=== PATIENT | female | born 1955 | race Caucasian/White ===

== ENCOUNTER 2016-12-03 17:42 | Emergency (ER) | payer BC, OTHER ==
[~2016-12-03] VITALS: Ht 175.3 cm; Wt 110.2 kg
--- NOTE | 2016-12-03 19:41 | PHYS DOC ---
Past Medical History Past Medical History: A-Fib, Depression, High Cholesterol, Hypertension, [place] Past Surgical History: Other Additional Past Surgical Histo: cardiac stent placed Alcohol Use: None Drug Use: None Adult General Chief Complaint Chief Complaint: CHEST WALL PAIN HPI HPI Patient is a 61 year old female who complains of right sided chest pain under and lateral to her right breast for several days, getting worse. It hurts worse when she breathes. She's had a productive cough for one or 2 months, at first thought it was just a chest cold. She saw her doctor a few days ago who listened to her lungs and seemed to think they did okay. She is not particularly short of breath but it hurts when she breathes. She denies COPD. She does smoke about 5 or 6 cigarettes a day. I encouraged her to quit. Patient states she does have A. fib. Her heating engineer recently increased her metoprolol dosage and plans on December 10 to do cardioversion, she is on Eliquis and aspirin. Review of Systems Review of Systems Constitutional: Denies fever or chills [] Eyes: Denies change in visual acuity, redness, or eye pain [] HENT: Denies nasal congestion or sore throat [] Respiratory: As in history of present illness Cardiovascular: Patient's chest pain does not sound cardiac, as described in history of present illness GI: Denies abdominal pain, nausea, vomiting, bloody stools or diarrhea [] : Denies dysuria or hematuria [] Musculoskeletal: Denies back pain or joint pain [] Integument: Denies rash or skin lesions [] Neurologic: Denies headache, focal weakness or sensory changes [] Allergies Allergies Allergies Coded Allergies Type Severity Reaction Last Updated Verified No Known Drug Allergies 12/03/16 No Physical Exam Physical Exam Constitutional: Well developed, well nourished, no acute distress, non-toxic appearance. Pulse ox on room air 97%. HENT: Normocephalic, atraumatic, bilateral external ears normal, nose normal. [ ] Eyes: conjunctiva normal, no discharge. [] Neck: Normal range of motion, no stridor. [] Cardiovascular:Heart irregularly irregular, no murmur Lungs & Thorax: Good air movement in all webster, expiratory wheezes present throughout, no rhonchi, no consolidative changes Skin: Warm, dry, no erythema, no rash. [] Extremities: No tenderness, no cyanosis, no clubbing, ROM intact, no edema. [] Neurologic: Alert and oriented X 3, normal motor function, normal sensory function, no focal deficits noted. [] Current Patient Data Vital Signs Vital Signs Date Time Temp Pulse Resp B/P Pulse Ox O2 Delivery O2 Flow Rate FiO2 12/03/16 17:57 97.7 72 24 114/75 98 Room Air 97.7 EKG EKG 12-lead EKG read by me. Atrial fibrillation. Heart rate 79. There are no acute ST or T wave changes indicative of ischemia or infarction. No STEMI. 1836 [] Radiology/Procedures Radiology/Procedures Two-view chest x-ray read by me. Heart size is normal. Lung webster are clear. Chest x-ray is normal. [] Course & Med Decision Making Course & Med Decision Making Pertinent Labs and Imaging studies reviewed. (See chart for details) 61-year-old female who has had a cough for over a month which has become worse and productive, now complaining of right-sided pleuritic chest pain. Even though her chest x-ray is clear, she is scheduled next week for a cardioversion and I elected to prescribe a Z-Victorino for her to cover her. Also a few [place] since she is on Eliquis for her pain and cough. [] Dragon Disclaimer Dragon Disclaimer This electronic medical record was generated, in whole or in part, using a voice recognition dictation system. Departure Departure Impression: Primary Impression: Pleuritic chest pain Additional Impression: Bronchitis Disposition: 01 HOME, SELF-CARE Condition: STABLE Referrals: LILLIAM BOWSER MD (PCP) Patient Instructions: Acute Bronchitis, [id number] Additional Instructions: As we discussed, I strongly urge you to quit smoking. Your lungs are wheezy and you are probably getting COPD. We will treat for bronchitis or possible pneumonia with a Z-Victorino, antibiotics. For pain and cough, hydrocodone as prescribed, not while driving, it will cause sedation and constipation. It is an opiate, use sparingly for a short time. Scripts Hydrocodone/Apap 5-325 ([place] 5-325 Tablet)1 Each Tablet1-2 Tab PO Q4-6HRS #20 TAB For pain and cough Not while driving Prov:JACLYN BLANDON MD 12/03/16 Azithromycin (Azithromycin Tablet)250 Mg Tablet1 Pkg PO UD #6 TAB As instructed for bronchitis/pneumonia Prov:JACLYN BLANDON MD 12/03/16 Problem Qualifiers JACLYN BLANDON MD Dec 03, 2016 19:41
[2016-12-03 19:52] VITALS: BP 111/61
[2016-12-03] MEDS ORDERED: AZIT250T6 PO (20:01)
[2016-12-03] MEDS ORDERED: HYDR-971 PO (20:01)
--- NOTE | 2016-12-04 06:17 | EKG ---
[facility] [address] [place] [address] Test Date: 2016-12-03 Test Time: 18:33:42 Pat Name: CLINTON SHIRLEY Department: Room: Gender: F [employer] Ground Worker: : 1955 Requested By: JACLYN BLANDON Order Number: [id number] Reading MD: Measurements Intervals [place] Rate: 79 P: MS: QRS: 40 QRSD: 110 T: -22 QT: 416 QTc: 484 Interpretive Statements IRREGULAR RHYTHM, NO P-WAVE FOUND INCOMPLETE RIGHT BUNDLE BRANCH BLOCK PROLONGED QT RI6.01 No previous ECG available for comparison
--- NOTE | 2016-12-04 08:54 | RAD ---
PA and lateral chest radiographs 12/03/2016 Clinical history: Right-sided chest pain. PA and lateral digital radiographs of the chest were obtained. Comparison study dated 08/12/2013. The cardiac silhouette is mildly enlarged. The thoracic aorta is tortuous. Atherosclerotic calcification of the thoracic aorta is seen. No acute pulmonary infiltrate is noted. No pneumothorax or pleural effusion is seen. Very mild S-shaped curvature of the thoracolumbar spine is noted. Degenerative changes are seen involving the thoracic spine Impression: No acute abnormality is seen.
== END 2016-12-03 20:25 | disposition home or self-care (01) ==
LOC: ER 17:42
DX: J40 Bronchitis, not specified as acute or chronic (principal); R07.81 Pleurodynia; I48.91 Unspecified atrial fibrillation; I10 Essential (primary) hypertension; F32.9 Major depressive disorder, single episode, unspecified; E78.00 Pure hypercholesterolemia, unspecified; F17.210 Nicotine dependence, cigarettes, uncomplicated; Z95.5 Presence of coronary angioplasty implant and graft
CPT/HCPCS: 71020; 93005; 99284

== ENCOUNTER 2018-04-23 12:31 | Emergency (ER) | payer BC ==
[~2018-04-23] VITALS: Ht 175.3 cm; Wt 101.2 kg
[~2018-04-23 12:31] MED LIST: AZIT250T6 PO; HYDR-971 PO
--- NOTE | 2018-04-23 13:04 | EKG ---
[facility] [address] [place] [address] Test Date: 2018-04-23 Test Time: 12:45:18 Pat Name: CLINTON SHIRLEY Department: Room: Gender: F Key Maker: JERROD : 1955 Requested By: JUAN TERRY Order Number: [id number] Reading MD: Wade Pereira MD Measurements Intervals [place] Rate: 93 P: 0 NV: 256 QRS: 38 QRSD: 110 T: -41 QT: 372 QTc: 465 Interpretive Statements ATRIAL FIBRILLATION WITH CONTROLLED VENTRICULAR RESPONSE NON-SPECIFIC ST/T CHANGES Electronically Signed On 04-27-2018 11:55:25 CDT by Wade Pereira MD
--- NOTE | 2018-04-23 13:11 | RAD ---
Portable chest, 04/23/2018: HISTORY: Chest pain Comparison is made to a study from 12/03/2016. The heart size and pulmonary vascularity are normal. There is mild bilateral apical scarring. No pulmonary infiltrate is seen. There is no evidence of pleural fluid. IMPRESSION: No acute cardiopulmonary abnormality is detected. Electronically signed by: Arnold Daly MD (04/23/2018 1:08 PM) [facility]
--- NOTE | 2018-04-23 13:25 | PHYS DOC ---
Past Medical History Past Medical History: A-Fib, Depression, High Cholesterol, Hypertension, [place] Past Surgical History: Other Additional Past Surgical Histo: cardiac stent placed Alcohol Use: None Drug Use: None Adult General Chief Complaint Chief Complaint: CHEST PAIN HPI HPI Patient is a 62 year old female was presenting with chest pain onset 2 days ago right side pleuritic and radiates to the right shoulder worse with deep breathing it is not exertional no left-sided pain no fever minimal cough sent in by primary doctor for CT scan PE protocol as well as probable admission due to ST depressions noted on EKG. Review of Systems Review of Systems Constitutional: Denies fever or chills [] Eyes: Denies change in visual acuity, redness, or eye pain [] HENT: Denies nasal congestion or sore throat [] GI: Denies abdominal pain, nausea, vomiting, bloody stools or diarrhea [] : Denies dysuria or hematuria [] Musculoskeletal: Denies back pain or joint pain [] Integument: Denies rash or skin lesions [] Neurologic: Denies headache, focal weakness or sensory changes [] All other systems were reviewed and found to be within normal limits, except as documented in this note. Current Medications Current Medications Current Medications Medications (Trade) Dose Ordered Sig/Amy Start Time Stop Time Status Last Admin Dose Admin Info (CONTRAST GIVEN -- Rx MONITORING) 1 each PRN DAILY PRN 04/23/18 14:45 04/25/18 14:44 Iohexol (Omnipaque 300 Mg/ml) 75 ml 1X ONCE 04/23/18 14:45 04/23/18 14:46 DC 04/23/18 14:46 75 ML Allergies Allergies Allergies Coded Allergies Type Severity Reaction Last Updated Verified No Known Drug Allergies 12/03/16 No Physical Exam Physical Exam Constitutional: Well developed, well nourished, no acute distress, non-toxic appearance. [] HENT: Normocephalic, atraumatic, bilateral external ears normal, oropharynx moist, no oral exudates, nose normal. [] Eyes: PERRLA, EOMI, conjunctiva normal, no discharge. [] Neck: Normal range of motion, no tenderness, supple, no stridor. [] Cardiovascular:Heart rate regular rhythm, no murmur [] Lungs & Thorax: Bilateral breath sounds clear to auscultation [] Abdomen: Bowel sounds normal, soft, no tenderness, no masses, no pulsatile masses. [] Skin: Warm, dry, no erythema, no rash. [] Back: No tenderness, no CVA tenderness. [] Extremities: No tenderness, no cyanosis, no clubbing, ROM intact, no edema. [] Neurologic: Alert and oriented X 3, normal motor function, normal sensory function, no focal deficits noted. [] Psychologic: Affect normal, judgement normal, mood normal. [] Current Patient Data Vital Signs Vital Signs Date Time Temp Pulse Resp B/P (MAP) Pulse Ox O2 Delivery O2 Flow Rate FiO2 04/23/18 13:36 98.0 90 18 146/88 (107) 98 Room Air 98.0 Lab Values Laboratory Tests Test 04/23/18 13:51 White Blood Count 10.3 x10^3/uL (4.0-11.0) Red Blood Count 4.47 x10^6/uL (3.50-5.40) Hemoglobin 14.7 g/dL (12.0-15.5) Hematocrit 41.3 % (36.0-47.0) Mean Corpuscular Volume 92 fL (79-100) Mean Corpuscular Hemoglobin 33 pg (25-35) Mean Corpuscular Hemoglobin Concent 36 g/dL (31-37) Red Cell Distribution Width 12.8 % (11.5-14.5) Platelet Count 184 x10^3/uL (140-400) Neutrophils (%) (Auto) 62 % (31-73) Lymphocytes (%) (Auto) 28 % (24-48) Monocytes (%) (Auto) 7 % (0-9) Eosinophils (%) (Auto) 2 % (0-3) Basophils (%) (Auto) 1 % (0-3) Neutrophils # (Auto) 6.4 x10^3uL (1.8-7.7) Lymphocytes # (Auto) 2.9 x10^3/uL (1.0-4.8) Monocytes # (Auto) 0.7 x10^3/uL (0.0-1.1) Eosinophils # (Auto) 0.2 x10^3/uL (0.0-0.7) Basophils # (Auto) 0.1 x10^3/uL (0.0-0.2) Prothrombin Time 16.2 SEC (11.7-14.0) H Prothrombin Time INR 1.4 (0.8-1.1) H Sodium Level 139 mmol/L (136-145) Potassium Level 3.7 mmol/L (3.5-5.1) Chloride Level 106 mmol/L (98-107) Carbon Dioxide Level 25 mmol/L (21-32) Anion Gap 8 (6-14) Blood Urea Nitrogen 15 mg/dL (7-20) Creatinine 0.8 mg/dL (0.6-1.0) Estimated GFR (Cockcroft-Gault) 72.4 BUN/Creatinine Ratio 19 (6-20) Glucose Level 115 mg/dL (70-99) H Calcium Level 8.5 mg/dL (8.5-10.1) Total Bilirubin 0.6 mg/dL (0.2-1.0) Aspartate Amino Transferase (AST) 13 U/L (15-37) L Alanine Aminotransferase (ALT) 16 U/L (14-59) Alkaline Phosphatase 136 U/L (46-116) H Troponin I Quantitative < 0.017 ng/mL (0.000-0.055) Total Protein 6.9 g/dL (6.4-8.2) Albumin 3.2 g/dL (3.4-5.0) L Albumin/Globulin Ratio 0.9 (1.0-1.7) L Laboratory Tests 04/23/18 13:51 Laboratory Tests 04/23/18 13:51 EKG EKG [] Interpretation Time: EKG shows a normal sinus rhythm with a rate of [address] depressions in the lateral leads that do look slightly different than the last EKG dated December 03, 2016 although there wer nonspecific changes then. No STEMI Radiology/Procedures Radiology/Procedures [] Impressions: Comparison is made to a study from 12/03/2016. The heart size and pulmonary vascularity are normal. There is mild bilateral apical scarring. No pulmonary infiltrate is seen. There is no evidence of pleural fluid. IMPRESSION: No acute cardiopulmonary abnormality is detected. Electronically signed by: Arnold Daly MD (04/23/2018 1:08 PM) [facility] DICTATED and SIGNED BY: ARNOLD DALY MD DATE: 04/23/18 7601 Course & Med Decision Making Course & Med Decision Making Pertinent Labs and Imaging studies reviewed. (See chart for details) []62-year-old female with known coronary artery disease status post stent placement is presenting with chest pain. Is very atypical however there are some subtle EKG changes. CT PE protocol per patient's primary doctor was done. CT scan was negative for PE. I recommended admission to the hospital for rule out acute coronary syndrome and/or risk stratification. Troponin is negative after 2 days of pain the pain is atypical. However she does have known stents. She does not want to stay she does not think is from her heart she is aware of risks and benefits of leaving including risk of missed coronary artery narrowing which could be leading to [place] or even . I did tell her father that this was a low risk but it was definitely not 0 and fact it was probably at least 10% if not higher. She still did not want to stay. I then did touch base with Dr. shahid patient's primary doctor who also thought the patient should be admitted and I did deliver that message to the patient as well nevertheless I still could not judgment patient to go she is of sound mind she is alert and understands what I'm talking about she can teach back to me. Dragon Disclaimer Dragon Disclaimer This electronic medical record was generated, in whole or in part, using a voice recognition dictation system. Departure Departure Impression: Primary Impression: Pleuritic chest pain Disposition: 07 AGAINST MEDICAL ADVICE Condition: STABLE Referrals: LILLIAM BOWSER MD (PCP) JUAN TERRY MD Apr 23, 2018 13:25
[2018-04-23 13:59] LABS: BASO # 0.1 x10^3/uL (0.0-0.2); BASO % 1 % (0-3); EOS # 0.2 x10^3/uL (0.0-0.7); EOS % 2 % (0-3); HEMATOCRIT 41.3 % (36.0-47.0); HEMOGLOBIN 14.7 g/dL (12.0-15.5); LYMPH # 2.9 x10^3/uL (1.0-4.8); LYMPH % 28 % (24-48); MEAN CORPUSCULAR HEMOGLOBIN 33 pg (25-35); MEAN CORPUSCULAR HGB CONC 36 g/dL (31-37); MEAN CORPUSCULAR VOLUME 92 fL (79-100); MONO # 0.7 x10^3/uL (0.0-1.1); MONO % 7 % (0-9); NEUT # 6.4 x10^3uL (1.8-7.7); NEUT % 62 % (31-73); PLATELET COUNT 184 x10^3/uL (140-400); RED BLOOD COUNT 4.47 x10^6/uL (3.50-5.40); RED CELL DISTRIBUTION WIDTH 12.8 % (11.5-14.5); WHITE BLOOD COUNT 10.3 x10^3/uL (4.0-11.0)
[2018-04-23 14:07] LABS: PROTHROMBIN TIME PATIENT 16.2 SEC (11.7-14.0)
[2018-04-23 14:08] LABS: CALCIUM 8.5 mg/dL (8.5-10.1); CREATININE 0.8 mg/dL (0.6-1.0); GFR 72.4; POTASSIUM 3.7 mmol/L (3.5-5.1)
[2018-04-23 14:13] LABS: ALBUMIN 3.2 g/dL (3.4-5.0); ALBUMIN/GLOBULIN RATIO 0.9 (1.0-1.7); TOTAL BILIRUBIN 0.6 mg/dL (0.2-1.0); TOTAL PROTEIN 6.9 g/dL (6.4-8.2)
[2018-04-23] MEDS ORDERED: IOHEXOL 300 MG/ML 100ML VIAL. IV ONE (14:45)
[2018-04-23] MEDS ORDERED: CONTRAST GIVEN. MC PRN (14:45)
--- NOTE | 2018-04-23 15:53 | RAD ---
Examination: CT angiography chest HISTORY: History of right-sided pleuritic chest pain COMPARISON: None available Exposure: One or more of the following individualized dose reduction techniques were utilized for this examination: 1. Automated exposure control 2. Adjustment of the mA and/or kV according to patient size 3. Use of iterative reconstruction technique TECHNIQUE: Axial CT angiographic images of chest were performed with IV contrast. Coronal and sagittal 3-D MIP reformats performed. FINDINGS: The visualized central airways are patent. The heart size demonstrates mild cardiomegaly. Coronary artery calcifications identified. Mild aortic atherosclerosis. There is no evidence of filling defect identified in the main pulmonary arterial trunk and right and left main pulmonary arteries and the visualized lobar, segmental branches of the pulmonary arteries. Emphysematous changes identified in the apical lungs. Mild apical lung scarring changes. Minimal right hilar prominence. No evidence of pleural effusion or pneumothorax. There is reflux of contrast into the IVC and hepatic veins. The caliber of the aorta grossly appears unremarkable. Mild degenerative changes thoracic spine. IMPRESSION: 1. No evidence of pulmonary embolism. 2. Coronary artery calcifications. 3. Emphysematous changes identified in the lungs. Minimal right hilar prominence probably hilar lymphadenopathy. Electronically signed by: Jd Pascal MD (04/23/2018 3:50 PM) [id number]
[2018-04-23 16:00] VITALS: BP 129/77
== END 2018-04-23 16:33 | disposition home or self-care (01) ==
LOC: ER 12:31
DX: R09.1 Pleurisy (principal); I48.91 Unspecified atrial fibrillation; E78.00 Pure hypercholesterolemia, unspecified; I10 Essential (primary) hypertension; I25.2 Old myocardial infarction
CPT/HCPCS: 36415; 71045; 71275; 80053; 84484; 85025; 85610; 93005; 99285; Q9967

== ENCOUNTER 2020-07-26 19:29 | Emergency (ER) | payer BC, OTHER ==
[~2020-07-26] VITALS: Ht 175.3 cm; Wt 90.0 kg
[~2020-07-26 19:29] MED LIST changes: +HYDR-3164 PO; -HYDR-971 PO
--- NOTE | 2020-07-26 19:42 | PHYS DOC ---
Past Medical History Past Medical History: A-Fib, Depression, High Cholesterol, Hypertension, [place], Other Additional Past Medical Histor: HEP C Past Surgical History: Angioplasty, Other Additional Past Surgical Histo: cardiac stent placed Smoking Status: Current Every Day Smoker Alcohol Use: None Drug Use: None General Adult EDM: Chief Complaint: SHOULDER INJURY HPI: HPI: Patient is a 65 year old female who presents with chief complaint of right shoulder pain. Patient had a mechanical fall yesterday and landed on her right hand and has severe in intensity right shoulder pain. Pain is worse with any range of motion or palpation of the right shoulder proximal humerus. Patient denies hitting her head or having loss of consciousness. Pain is nonradiating. Patient was seen by her doctor who had outpatient imaging. Pain is throbbing in nature. Review of Systems: Review of Systems: Constitutional: Denies fever or chills. [] Eyes: Denies change in visual acuity. [] HENT: Denies nasal congestion or sore throat. [] Respiratory: Denies cough or shortness of breath. [] Cardiovascular: Denies chest pain or edema. [] GI: Denies abdominal pain, nausea, vomiting, bloody stools or diarrhea. [] : Denies dysuria. [] Musculoskeletal: Denies back pain but has right shoulder pain Integument: Denies rash. [] Neurologic: Denies headache, focal weakness or sensory changes. [] Endocrine: Denies polyuria or polydipsia. [] Lymphatic: Denies swollen glands. [] Psychiatric: Denies depression or anxiety. [] Heart Score: Risk Factors: Risk Factors: DM, Current or recent (<one month) smoker, HTN, HLP, family history of CAD, obesity. Risk Scores: Score 0 - 3: 2.5% MACE over next 6 weeks - Discharge Home Score 4 - 6: 20.3% MACE over next 6 weeks - Admit for Clinical Observation Score 7 - 10: 72.7% MACE over next 6 weeks - Early Invasive Strategies Current Medications: Current Medications Morphine Sulfate (Morphine Sulfate) 4 mg 1X ONCE IV ; Start 07/26/20 at 20:00; Stop 07/26/20 at 19:58; Status DC Ondansetron HCl (Zofran) 4 mg 1X ONCE IVP ; Start 07/26/20 at 20:00; Stop 12/3/20 at 19:58; Status DC Morphine Sulfate (Morphine Sulfate) 5 mg 1X ONCE SQ Last administered on 07/26/20at 20:17; Start 07/26/20 at 20:00; Stop 07/26/20 at 20:02; Status DC Ondansetron HCl (Zofran Odt) 4 mg 1X ONCE PO Last administered on 07/26/20at 20:16; Start 07/26/20 at 20:00; Stop 07/26/20 at 20:02; Status DC Active Scripts Active [place] 5-325 Tablet (Acetaminophen/Hydrocodone Bitart) 1 Each Tablet 1-2 Tab PO Q4-6HRS For pain and cough Not while driving Azithromycin Tablet (Azithromycin) 250 Mg Tablet 1 Pkg PO UD As instructed for bronchitis/pneumonia Allergies: Allergies: Allergies Coded Allergies Type Severity Reaction Last Updated Verified No Known Drug Allergies 12/03/16 No Physical Exam: PE: Constitutional: Well developed, well nourished, no acute distress, non-toxic appearance. [] HENT: Normocephalic, atraumatic, bilateral external ears normal, no trismus nose normal. [] Eyes: PERRLA, EOMI, conjunctiva normal, no discharge. [] Neck: Normal range of motion, no tenderness, supple, no stridor. [] Cardiovascular: Irregular, peripheral pulses are intact Lungs & Thorax: Bilateral breath sounds clear, no respiratory distress Abdomen:, soft, no tenderness, no masses, no pulsatile masses. [] Skin: Warm, dry, no erythema, no rash. [] Scattered bruising on the right humerus Back: No tenderness, no CVA tenderness. [] Extremities: Tenderness and swelling to the right shoulder with significant limited range of motion. Neurovascular intact distally Neurologic: Alert and oriented X 3, normal motor function, normal sensory function, no focal deficits noted. [] No deltoid anesthesia Psychologic: Affect normal, judgement normal, mood normal. [] Current Patient Data: Vital Signs: Vital Signs Date Time Temp Pulse Resp B/P (MAP) Pulse Ox O2 Delivery O2 Flow Rate FiO2 07/26/20 19:30 98.2 99 18 102/60 (74) 96 Room Air 98.2 EKG: EKG: [] Radiology/Procedures: Radiology/Procedures: [][facility] [address] [place] [address] IMAGING REPORT Signed PATIENT: CLINTON SHIRLEY ACCOUNT: [id number] : 1955 LOCATION: ER AGE: 65 SEX: F EXAM STATUS: REG ER ORD. PHYSICIAN: KATHY MCKEON MD REASON: fall, shoulder pain PROCEDURE: SHOULDER 2+V RIGHT EXAM: Right shoulder, 3 views; right humerus, 2 views. HISTORY: Fall. Pain. COMPARISON: None. FINDINGS: 2 views of the right humerus and 3 views of the right shoulder obtained. There is a mildly displaced humeral head and neck fracture with fracture line extension to the greater tuberosity. There is acromioclavicular joint space narrowing with subchondral sclerosis and spurring. The distal humerus is excluded from the [id number]. IMPRESSION: 1. Mildly displaced proximal humeral fracture. 2. Mild acromioclavicular joint osteoarthritis. Electronically signed by: Jade Goss MD (07/26/2020 8:02 PM) [facility] DICTATED and SIGNED BY: JADE GOSS MD DATE: 07/26/[id number] 0 Course & Med Decision Making: Course & Med Decision Making Pertinent Labs and Imaging studies reviewed. (See chart for details) [] 65-year-old female with a mechanical fall yesterday and a right humeral head fracture. Shoulder immobilizer has been applied patient will need to follow-up with orthopedist in 2 to 3 days. Fracture care of the right proximal humerus shoulder was performed. Procedure note: Shoulder immobilizer application Clinical location right humeral neck fracture Shoulder immobilizer applied by metal room dental technician, examined by me after application, patient neurovascular intact with cap refill less than 2 seconds in the right upper extremity. Dragon Disclaimer: Dragon Disclaimer: This electronic medical record was generated, in whole or in part, using a voice recognition dictation system. Departure Departure Impression: Primary Impression: Fracture of humeral head, right, closed Disposition: 01 DC HOME SELF CARE/HOMELESS Condition: STABLE Referrals: LILLIAM BOWSER MD (PCP) HANY ETIENNE MD 2-3 DAYS Patient Instructions: Shoulder Fracture, Shoulder Immobilizer Additional Instructions: EMERGENCY DEPARTMENT GENERAL DISCHARGE INSTRUCTIONS THANK YOU for coming to [facility] Emergency Department (ED) today and trusting us with your care. We trust that you had a positive experience in our Emergency Department. If you wish to speak to the department Management you can contact the department head at . YOUR FOLLOW UP INSTRUCTIONS ARE FOLLOWS: Do you have a private doctor? If you do not have a private doctor, please ask for a resource list of physicians or clinics that may be able to assist you with follow up care. The Emergency Physician has interpreted your x-rays. The X-ray specialist will also review them. If there is a change in the findings you will be notified in 48 hours when at all possible. A lab test or lab culture may have been done, your results will be reviewed and you will be notified if you need a change in treatment. ADDITIONAL INSTRUCTIONS AND INFORMATION Your care today has been supervised by a physician who is specially trained in emergency care. Many problems require more than one evaluation for a complete diagnosis and treatment. We recommend that you schedule your follow up appointment as recommended to ensure complete treatment of your illness or injury. If you are unable to obtain follow up care and continue to have a problem, or if your condition worsens we recommend that you return to the ED. We are not able to safely determine your condition over the phone nor are we able to give sound medical advice over the phone. For these safety reasons, if you call for medical advice we will ask you to come to the ED for further evaluation If you have any questions regarding these discharge instructions please call the ED at . SAFETY INFORMATION In the interest of safety, wellness, and injury prevention; we encourage you to wear your seatbelt, if you smoke; quit smoking, and we encourage your family to use protective helmet for bicycling and other sporting events that present an increased risk for head injury. IF YOUR SYMPTOMS WORSEN OR NEW SYMPTOMS DEVELOP, OR YOU HAVE CONCERNS ABOUT YOUR CONDITION; OR IF YOUR CONDITION WORSENS WHILE YOU ARE WAITING FOR YOUR FOLLOW UP APPOINTMENT; EITHER CONTACT YOUR PRIMARY CARE DOCTOR, THE PHYSICIAN WHOSE NAME AND NUMBER YOU WERE GIVEN, OR RETURN TO THE ED IMMEDIATELY. Scripts Oxycodone/Apap 5-325 (PERCOCET 5-325 MG TABLET ) 1 Each Tablet 1-2 EACH PO PRN TID PRN for PAIN, #15 TAB pain Prov: KATHY MCKEON MD 07/26/20 KATHY MCKEON MD Jul 26, 2020 19:42
[2020-07-26] MEDS ORDERED: MORPHINE SULFATE 4 MG/ML VIAL. IV ONE (20:00)
[2020-07-26] MEDS ORDERED: ONDANSETRON ODT 4 MG TAB.RAPDIS. PO ONE (20:00)
[2020-07-26] MEDS ORDERED: MORPHINE SULFATE 10 MG/ML VIAL. SQ ONE (20:00)
[2020-07-26] MEDS ORDERED: ONDANSETRON PF 4 MG/2 ML VIAL. IVP ONE (20:00)
--- NOTE | 2020-07-26 20:05 | RAD ---
EXAM: Right shoulder, 3 views; right humerus, 2 views. HISTORY: Fall. Pain. COMPARISON: None. FINDINGS: 2 views of the right humerus and 3 views of the right shoulder obtained. There is a mildly displaced humeral head and neck fracture with fracture line extension to the greater tuberosity. There is acromioclavicular joint space narrowing with subchondral sclerosis and spurring. The distal humerus is excluded from the [id number]. IMPRESSION: 1. Mildly displaced proximal humeral fracture. 2. Mild acromioclavicular joint osteoarthritis. Electronically signed by: Jade Flanagan MD (07/26/2020 8:02 PM) [facility]
--- NOTE | 2020-07-26 20:05 | RAD ---
EXAM: Right shoulder, 3 views; right humerus, 2 views. HISTORY: Fall. Pain. COMPARISON: None. FINDINGS: 2 views of the right humerus and 3 views of the right shoulder obtained. There is a mildly displaced humeral head and neck fracture with fracture line extension to the greater tuberosity. There is acromioclavicular joint space narrowing with subchondral sclerosis and spurring. The distal humerus is excluded from the [id number]. IMPRESSION: 1. Mildly displaced proximal humeral fracture. 2. Mild acromioclavicular joint osteoarthritis. Electronically signed by: Jade Flanagan MD (07/26/2020 8:02 PM) [facility]
[2020-07-26] MEDS ORDERED: OXYC1TAB15 PO (20:32)
[2020-07-26 20:58] VITALS: BP 107/58
== END 2020-07-26 21:00 | disposition home or self-care (01) ==
LOC: ER 19:29
DX: S42.201A Unspecified fracture of upper end of right humerus, initial encounter for closed fracture (principal); M19.011 Primary osteoarthritis, right shoulder; I48.91 Unspecified atrial fibrillation; E78.00 Pure hypercholesterolemia, unspecified; I10 Essential (primary) hypertension; I25.2 Old myocardial infarction; F17.200 Nicotine dependence, unspecified, uncomplicated; Z95.5 Presence of coronary angioplasty implant and graft; W18.39XA Other fall on same level, initial encounter; Y93.89 Activity, other specified; Y92.89 Other specified places as the place of occurrence of the external cause; Y99.8 Other external cause status
CPT/HCPCS: 29105; 73030; 73060; 96372; 99284; J2270